=== PATIENT | female | born 1965 | race Caucasian/White ===

== ENCOUNTER 2019-05-23 08:51 | Day surgery (SDC) | payer OTHER ==
[2019-05-23] MEDS ORDERED: MIDAZOLAM 1 MG/ML 2 ML INJ ×2 (10:42)
[2019-05-23] MEDS ORDERED: FENTAnyl 50 MCG/ML VIAL (10:42)
== END 2019-05-23 13:47 | disposition home or self-care (01) ==
LOC: GIL 08:51
DX: Z12.11 Encounter for screening for malignant neoplasm of colon (principal); K64.8 Other hemorrhoids; E11.9 Type 2 diabetes mellitus without complications
CPT/HCPCS: 45378; 82962